=== PATIENT | male | born 1945 | race African-American/Black ===

== ENCOUNTER 2024-09-23 10:04 | Emergency (ER) | payer MEDICARE, OTHER ==
[~2024-09-23] VITALS: Ht 177.8 cm; Wt 90.0 kg
[2024-09-23 10:07] VITALS: O2SAT 98
[2024-09-23 11:28] LABS: CHLORIDE 108 mEq/L (98-107); POTASSIUM 4.2 mEq/L (3.5-5.1); SODIUM 143 mEq/L (136-145)
[2024-09-23 11:29] LABS: CALCIUM 8.6 mg/dL (8.7-10.4); CARBON DIOXIDE 31 mEq/L (21-32)
[2024-09-23 11:33] LABS: INR 0.9; PROTHROMBIN TIME 10.3 sec (9.6-11.0)
[2024-09-23 11:34] LABS: CREATININE 1.1 mg/dL (0.6-1.3); GLUCOSE 111 mg/dL (70-105); UREA NITROGEN BLOOD 19 mg/dL (9-23)
[2024-09-23 11:35] LABS: TROPONIN I HIGH SENSITIVITY 5 ng/L (3.0-53)
[2024-09-23 11:43] LABS: BASOPHILS % 0.6 % (0.0-2.0); HEMATOCRIT. 40.2 % (42.0-52.0); LYMPHOCYTES % 17.1 % (20.0-50.0); MEAN CORPUSCULAR HEMOGLOBIN 28.5 pg (28.0-32.0); MEAN CORPUSCULAR HGB CONC 32.2 g/dL (31.0-37.0); MEAN CORPUSCULAR VOLUME 88.6 fL (80.0-94.0); MEAN PLATELET VOLUME 10.2 fl (7.4-10.4); MONOCYTES % 7.8 % (2.0-8.0); NEUTROPHILS % 66.5 % (40.0-76.0); PLATELET 130 x1000/uL (130-400); RED BLOOD CELL COUNT 4.54 mill/uL (4.7-6.1); RED CELL DISTRIBUTION WIDTH 14.5 % (11.6-14.6)
[2024-09-23 13:59] LABS: TROPONIN I HIGH SENSITIVITY 5 ng/L (3.0-53)
[2024-09-23 14:55] VITALS: BP 126/84; PULSE 68; RESP 11; TEMP 36.94740; O2SAT 98
== END 2024-09-23 14:45 | disposition home or self-care (01) ==
LOC: ER 10:42
DX: R55 Syncope and collapse (principal); I44.0 Atrioventricular block, first degree; I10 Essential (primary) hypertension; R09.81 Nasal congestion; R05.9 Cough, unspecified
CPT/HCPCS: 36415; 71045; 80048; 83880; 84484; 85025; 93005; 99285